=== PATIENT | male | born 1995 | race Caucasian/White ===

== ENCOUNTER 2018-01-23 13:44 | Emergency (ER) | payer BC ==
[2018-01-23] MEDS ORDERED: Benzocaine/Butamben/Tetracain* SPRAY TOPICAL ONE (14:15)
[2018-01-23] MEDS ORDERED: Lidocaine 2% VISCOUS* 15 ML UDC PO ONE (14:15)
[2018-01-23] MEDS ORDERED: NS 0.9% 1000 ML* 1,000 ML IV ONE (14:15)
[2018-01-23] MEDS ORDERED: Clindamycin 900 MG/D5W BAG(*) 900 MG/50 ML BAG IVPB ONE (14:15)
[2018-01-23] MEDS ORDERED: Dexamethasone IV* 4 MG/ML 1 ML (4 MG) IV SLOW PU ONE (14:15)
--- NOTE | 2018-01-23 14:18 | ED ---
Throat Pain/Nasal Congestion - HPI Summary HPI Summary: Pt is a 22 y/o male sent by the who presents to the ED c/o sore throat. Hes had a sore throat for 7 days, and was diagnosed with strep throat. 2-3 days ago he developed an abscess in his throat. Pt has not taking antibiotics. - History of Current Complaint Chief Complaint: EDThroatPain Time Seen by Provider: 01/23/18 14:08 Hx Obtained From: Patient Onset/Duration: Gradual Onset, Lasting Days - 7, Still Present Associated Signs And Symptoms: Positive: Hoarseness Cough: None Related History: Other (Noted In Comments) - Strep throat PMH/Surg Hx/FS Hx/Imm Hx Endocrine/Hematology History: Denies: Hx Diabetes Cardiovascular History: Denies: Hx Hypertension Infectious Disease History: No Infectious Disease History: Denies: Traveled Outside the [place] in Last 30 Days - Family History Known Family History: Negative: Diabetes - Social History Alcohol Use: Occasionally Hx Substance Use: No Substance Use Type: Reports: None Hx Tobacco Use: No Smoking Status (MU): Never Smoked Tobacco Review of Systems Negative: Fever Positive: Sore Throat, Other - abscess in throat All Other Systems Reviewed And Are Negative: Yes Physical Exam - Summary Physical Exam Summary: Appearance: Well appearing, no pain distress Skin: warm, dry, reflects adequate perfusion Head/face: trismus Eyes: EOMI, UTE ENT: mucous membranes moist, hoarse voice, left tonsillar fullness with erosions on tonsil, peritonsillar redness and fullness, shift of midline Neck: supple, adjacent adenopathy Respiratory: CTA, breath sounds present Cardiovascular: RRR, pulses symmetrical Abdomen: non-tender, soft Bowel Sounds: present Musculoskeletal: normal, strength/ROM intact Neuro: normal, sensory motor intact, A&Ox3 Triage Information Reviewed: Yes Vital Signs On Initial Exam: Initial Vitals Temp Pulse Resp BP Pulse Ox 99.6 F 95 18 118/60 100 01/23/18 13:58 01/23/18 13:58 01/23/18 13:58 01/23/18 13:58 01/23/18 13:58 Vital Signs Reviewed: Yes Procedures - Procedure Summary Procedure Summary: Aspiration and drainage of Left peritonsillar abscess: A timeout was performed and the patient had signed consent. Real-time ultrasound was performed intraorally by me. Abscess was identified. He was anesthetized with Cetacaine spray and an 18-gauge needle was used to aspirate approximately 2 cc of purulent material. A culture was sent. He tolerated this well with pain relief and no complication. Diagnostics - Vital Signs Vital Signs Temp Pulse Resp BP Pulse Ox 01/23/18 13:58 99.6 F 95 18 118/60 100 - Laboratory Lab Statement: Any lab studies that have been ordered have been reviewed, and results considered in the medical decision making process. EENT Course/Dx - Course Course Of Treatment: Intraoral drainage of peritonsillar abscess performed under ultrasound guidance. 2 cc of pus removed. Discussed the case with ENT who agrees and will follow-up closely. Patient is instructed to call first thing in the morning. He was medicated here with IV dexamethasone and clindamycin. - Diagnoses Provider Diagnoses: Peritonsillar abscess - Provider Notifications Discussed Care Of Patient With: Jerzy Gandara Time Discussed With Above Provider: 14:59 Instructed by Provider To: Have Pt Call For Appt. - Will see pt tomorrow. Discharge - Sign-Out/Discharge Documenting (check all that apply): Patient Departure - Discharge - Discharge Plan Condition: Improved Disposition: HOME Prescriptions: Clindamycin Cap(NF) [Clindamycin Cap 300 mg Cap(NF)] 300 mg PO Q6H #40 cap Dexamethasone TAB* [Decadron TAB*] 8 mg PO DAILY #10 tab Patient Education Materials: Peritonsillar Abscess (ED) Referrals: Jerzy Gandara MD [Medical Doctor] - [facility] - [place] [Primary Care Provider] - Additional Instructions: Drink plenty of fluids. Soft or liquid diet. Tylenol, ibuprofen as needed for discomfort. Stay well-hydrated. Return if worse, trouble breathing, new symptoms, or other concerns as discussed. Call first thing in the morning to schedule follow up with the Ear Nose and Throat Surgeon. - Billing Disposition and Condition Condition: IMPROVED Disposition: Home - Attestation Statements Document Initiated by Scribe: Yes Documenting Scribe: Herlinda Hewitt Provider For Whom Scribe is Documenting (Include Credential): Noe Matias MD Scribe Attestation: Herlinda Garisa, scribed for Noe Matias MD on 01/23/18 at 1906. Scribe Documentation Reviewed: Yes Provider Attestation: The documentation as recorded by the [email or web address] accurately reflects the service I personally performed and the decisions made by me, Noe Matias MD
[2018-01-23] MEDS ORDERED: Benzocaine/Butamben/Tetracain (CETACAINE - SINGLE USE) 5 gm TOPICAL ONE (14:30)
[2018-01-23] MEDS ORDERED: Ketorolac INJ* 30 MG/ML 1 ML VIAL IV PUSH ONE (14:46)
[2018-01-23 16:10] VITALS: BP 133/73
== END 2018-01-23 16:09 | disposition home or self-care (01) ==
LOC: ED 13:44
DX: J36 Peritonsillar abscess (principal)
CPT/HCPCS: 42700; 87070; 87077; 96361; 96374; 96375; 99282; A9270-GY; J1100; J1885

== ENCOUNTER 2018-07-29 04:39 | Emergency (ER) | payer BC ==
[2018-07-29] MEDS ORDERED: Piperacillin/Tazobac ADVAN(*) 3.375 GM in NS 0.9% 100 ML* 100 ML IVPB ONE (05:08)
[2018-07-29] MEDS ORDERED: NS 0.9% 1000 ML** 1,000 ML IV ONE (05:08)
[2018-07-29] MEDS ORDERED: methylPREDNISolone 125 MG* 2 ML VIAL IV ONE (05:08)
--- NOTE | 2018-07-29 05:09 | ED ---
Throat Pain/Nasal Congestion - HPI Summary HPI Summary: Patient is a 22 y/o M presenting to ED with complaints of sore throat, more so at the left, for the past few days. Fever and drooling are denied. Patient has Hx of peritonsillar abcess on the left, last occurrence was in January. He notes that present Sx feel similar to previous episodes. He has not been evaluated for these Sx yet. No PMHx, no PSHx, FMHx of diabetes is denied, patient has never smoked tobacco, reports occasional alcohol usage, and denies substance usage. On triage, pain is rated 7/10, nothing is noted to aggravate/ alleviate Sx. Home medications and allergies are reviewed. - History of Current Complaint Chief Complaint: EDThroatPain Time Seen by Provider: 07/29/18 04:57 Hx Obtained From: Patient Onset/Duration: Lasting Days, Still Present Severity: Severe - 7/10 Associated Signs And Symptoms: Negative: Drooling Cough: None - Allergies/Home Medications Allergies/Adverse Reactions: Allergies Allergy/AdvReac Type Severity Reaction Status Date / Time No Known Allergies Allergy Verified 07/29/18 04:46 Home Medications: Home Medications NK [No Home Medications Reported] 07/29/18 [History Confirmed 07/29/18] PMH/Surg Hx/FS Hx/Imm Hx Endocrine/Hematology History: Denies: Hx Diabetes Cardiovascular History: Denies: Hx Hypertension Infectious Disease History: No Infectious Disease History: Denies: Traveled Outside the [place] in Last 30 Days - Family History Known Family History: Negative: Diabetes - Social History Alcohol Use: Occasionally Hx Substance Use: No Substance Use Type: Reports: None Hx Tobacco Use: No Smoking Status (MU): Never Smoked Tobacco Review of Systems Negative: Fever ENT: Other - NEGATIVE - DROOLING Positive: Sore Throat - left sided All Other Systems Reviewed And Are Negative: Yes Physical Exam - Summary Physical Exam Summary: VITAL SIGNS: Reviewed. GENERAL: Patient is a well-developed and nourished male who is lying comfortable in the stretcher. Patient is not in any acute respiratory distress. HEAD AND FACE: No signs of trauma. No ecchymosis, hematomas or skull depressions. No sinus tenderness. EYES: PERRLA, EOMI x 2, No injected conjunctiva, no nystagmus. EARS: Hearing grossly intact. Ear canals and tympanic membranes are within normal limits. MOUTH: Swelling of the left soft palette and peritonsillar area, no exudate. NECK: Supple, trachea is midline, no adenopathy, no JVD, no carotid bruit, no c- spine tenderness, neck with full ROM CHEST: Symmetric, no tenderness at palpation LUNGS: Clear to auscultation bilaterally. No wheezing or crackles. CVS: Regular rate and rhythm, S1 and S2 present, no murmurs or gallops appreciated. ABDOMEN: Soft, non-tender. No signs of distention. No rebound no guarding, and no masses palpated. Bowel sounds are normal. EXTREMITIES: FROM in all major joints, no edema, no cyanosis or clubbing. NEURO: Alert and oriented x 3. No acute neurological deficits. Speech is normal and follows commands. SKIN: Dry and warm Triage Information Reviewed: Yes Vital Signs On Initial Exam: Initial Vitals Temp Pulse Resp BP Pulse Ox 97.5 F 80 16 127/73 99 07/29/18 04:40 07/29/18 04:40 07/29/18 04:40 07/29/18 04:40 07/29/18 04:40 Vital Signs Reviewed: Yes Diagnostics - Vital Signs Vital Signs Temp Pulse Resp BP Pulse Ox 07/29/18 04:40 97.5 F 80 16 127/73 99 - Laboratory Result Diagrams: 07/29/18 05:33 07/29/18 05:33 Lab Statement: Any lab studies that have been ordered have been reviewed, and results considered in the medical decision making process. EENT Course/Dx - Course Course Of Treatment: Patient is a 22 y/o M presenting to ED with complaints of sore throat, more so at the left, for the past few days. Fever and drooling are denied. Patient has Hx of peritonsillar abcess on the left, last occurrence was in January. He notes that present Sx feel similar to previous episodes. He has not been evaluated for these Sx yet. No PMHx, no PSHx, FMHx of diabetes is denied, patient has never smoked tobacco, reports occasional alcohol usage, and denies substance usage. On physical exam, swelling of left soft palette and peritonsillar area is noted, no exudate. Labs showed MPV 6.6, absolute monos 1.2, glucose 107, CRP 17.08. Group A strep rapid was positive. During ED course , patient received fluids, piperacillin sod/tazobactam sod 3.375 gm in sodium chloride, 100 mls @ 200 mls/hr IVPB ED ONCE ONE, and solu-medrol 125 mg IV ED ONCE ONE. Patient is signed out to Dr. Carter pending results of CT Neck. - Diagnoses Provider Diagnoses: Strep throat Discharge - Sign-Out/Discharge Documenting (check all that apply): Sign-Out Patient Signing out patient TO: Jules Carter - Discharge Plan Referrals: No Primary Care Phys,NOPCP [Primary Care Provider] - - Attestation Statements Document Initiated by Scribe: Yes Documenting Scribe: DEN BUSH Provider For Whom Scribe is Documenting (Include Credential): EVANGELISTA MUNOZ MD Scribe Attestation: DEN Garsia, scribed for EVANGELISTA MUNOZ MD on 07/29/18 at 0739. Status of Scribe Document: Ready
[2018-07-29 05:40] LABS: ABS Eosinophils 0.2 10^3/ul (0-0.6); ABS Lymphocytes 2.1 10^3/ul (1.0-4.8); ABS Monocytes 1.2 10^3/ul (0-0.8); ABS Neutrophils 6.1 10^3/ul (1.5-7.7); Hematocrit 43 % (42-52); Hemoglobin 15.2 g/dL (14.0-18.0); Lymphocyte % 21.6 %; Mean Corpuscular HGB Conc 35 g/dL (31-36); Mean Corpuscular Hemoglobin 30 pg (27-31); Mean Corpuscular Volume 86 fL (80-94); Mean Platelet Volume 6.6 fL (7.4-10.4); Nucleated Red Blood Cells % 0.1; Platelet Count 245 10^3/uL (150-450); Red Blood Count 5.07 10^6 /uL (4.18-5.48); Red Cell Distribution Width 12 % (10.5-15); White Blood Count 9.5 10^3/uL (3.5-10.8)
[2018-07-29 05:58] LABS: Albumin 4.2 g/dL (3.2-5.2); Albumin/Globulin Ratio 1.3 (1-3); BUN/Creatinine Ratio 16.8 (8-20); C Reactive Protein 17.08 mg/L (<8.01); Calcium 9.5 mg/dL (8.6-10.3); EGFR African American 106.6 (>60); EGFR Non-African American 88.1 (>60); Globulin 3.2 g/dL (2-4); Potassium 3.9 mmol/L (3.5-5.0); Total Bilirubin 0.6 mg/dL (0.2-1.0); Total Protein 7.4 g/dL (6.4-8.9)
[2018-07-29 06:03] LABS: Rapid Strep Molecular POSITIVE (Negative)
[2018-07-29] MEDS ORDERED: Iohexol 300* (CONTRAST) 10 ML SDV IV ONE (06:05)
--- NOTE | 2018-07-29 07:30 | ED ---
Progress - Progress Note Progress Note: Receiving sign-out from Dr. Kline at shift change [address] and disposition. Neck CT impression: There is a 1.5 x 0.8 cm left tonsillar abcess noted with surroundign inflammatory changes. Tehre is mass effect noted on the oropharynx with rightward displacement. ED Provider has reviewed this report. Discussed with Dr. Gandara ENT. Tonsillar abscess peritonsillar abscess are the same entity. Offered to drain the patients abcess in his office today. Patient stated he has work to do, despite recommendation. He understands the emergent nature of his problem and need to get it drained. He understands his airway might become compromised. He understands that antibiotics may not be effective. He is going to call and make an appointment for Wednesday with Dr. Gandara. Course/Dx - Course Course Of Treatment: Receiving sign out from Dr. Kline at shift change 0700. Patient is a 22 y/o M presenting to ED with complaints of sore throat, more so at the left, for the past few days. Neck CT was remarkable for peritonsillar abscess. Discussed with Dr. Gandara ENT. Tonsillar abscess peritonsillar abscess are the same entity. Offered to drain the patients abscess in his office today. Patient stated he has work to do, despite recommendation. He understands the emergent nature of his problem and need to get it drained. He understands his airway might become compromised. He understands that antibiotics may not be effective. He is going to call and make an appointment for Wednesday with Dr. Gandara. Dr. Gandara stated if the patient needed to return this weekend he could be called in to drain the abscess. - Diagnoses Provider Diagnoses: Strep throat, Peritonsillar abscess - Provider Notifications Discussed Care Of Patient With: Jerzy Gandara - ENT Time Discussed With Above Provider: 09:09 Instructed by Provider To: Send To Office Now Discharge - Sign-Out/Discharge Documenting (check all that apply): Patient Departure - Discharge, Receiving Sign-Out Receiving patient FROM: Viry Kline - At shift change 0700 Patient Received Moderate/Deep Sedation with Procedure: No - Discharge Plan Condition: Stable Disposition: HOME Prescriptions: Clindamycin HCl 300 mg PO QID #21 capsule predniSONE TAB* [Deltasone TAB*] 50 mg PO DAILY #4 tab Patient Education Materials: Peritonsillar Abscess (ED) Referrals: Jerzy Gandara MD [Medical Doctor] - 2 Days Additional Instructions: Follow up with Dr. Gandara on Wednesday to drain the abscess. Return to ED with any new or worsening symptoms. - Attestation Statements Document Initiated by Scribe: Yes Documenting Scribe: Gareth Shields Provider For Whom Scribe is Documenting (Include Credential): Jules Carter MD Scribe Attestation: IGareth, scribed for Jules Carter MD on 07/29/18 at 1826.
[2018-07-29 09:27] VITALS: BP 130/64
== END 2018-07-29 09:25 | disposition home or self-care (01) ==
LOC: ED 04:39
DX: J36 Peritonsillar abscess (principal)
CPT/HCPCS: 36415; 70491; 80053; 85025; 86140; 87651; 96365; 96366; 96375; 99283; J2543; J2930; Q9967